=== PATIENT | female | born 1970 | race Caucasian/White ===

== ENCOUNTER → 2018-01-02 | Outpatient (CLI) | payer BC ==
--- NOTE | 2018-01-04 10:46 | MM ---
Reason for exam: screening (asymptomatic). Last mammogram was performed 2 years and 9 months ago. History: Family history of breast cancer in mother at age 48. Took hormonal contraceptives for 15 years. Physical Findings: A clinical breast exam by your physician is recommended on an annual basis and results should be correlated with mammographic findings. MG Screening Mammo w CAD Bilateral CC and MLO view(s) were taken. Prior study comparison: April 16, 2015, left breast MG work up mamm w CAD LT. April 14, 2015, bilateral MG screening mammo w CAD. The breast tissue is heterogeneously dense. This may lower the sensitivity of mammography. No suspicious abnormality in the left breast. There is an asymmetry in the outer right breast at middle posterior depth. ASSESSMENT: Incomplete: need additional imaging evaluation, BI-RAD 0 RECOMMENDATION: Special view mammogram of the right breast. If lesion persists on supplemental views, image directed ultrasound is recommended. [facility] will attempt to contact patient to return for supplemental views and ultrasound if indicated.
== END | disposition home or self-care (01) ==
LOC: RADMAMWWP 10:59
PROVIDERS: ATTEND Obstetrics & Gynecology
DX: Z12.31 Encounter for screening mammogram for malignant neoplasm of breast (principal); Z80.3 Family history of malignant neoplasm of breast
CPT/HCPCS: 77067

== ENCOUNTER → 2018-01-14 | Outpatient (CLI) | payer BC ==
--- NOTE | 2018-01-14 09:02 | MM ---
Reason for exam: additional evaluation requested from abnormal screening. Last mammogram was performed less than 1 month ago. History: Family history of breast cancer in mother at age 48. Took hormonal contraceptives for 15 years. Physical Findings: Nurse did not find any significant physical abnormalities on exam. MG 3D Work Up W/Cad RT CC and MLO view(s) were taken of the right breast. Prior study comparison: January 02, 2018, bilateral MG screening mammo w CAD. April 16, 2015, left breast MG work up mamm w CAD LT. The breast tissue is heterogeneously dense. This may lower the sensitivity of mammography. No persisting architectural distortion in the upper outer quadrant, but there may be underlying 5mm asymmetric density. These results were verbally communicated with the patient and result sheet given to the patient on 01/14/18. ASSESSMENT: Incomplete: need additional imaging evaluation, BI-RAD 0 RECOMMENDATION: Ultrasound of the right breast. (upper outer quadrant)
--- NOTE | 2018-01-14 09:07 | USB ---
Reason for exam: additional evaluation requested from abnormal screening. History: Family history of breast cancer in mother at age 48. Took hormonal contraceptives for 15 years. US Breast Workup Limited RT Right breast ultrasound demonstrates no cystic or solid lesion seen. Scanned 9-12 o'clock. 6 month follow up recommended. These results were verbally communicated with the patient and result sheet given to the patient on 01/14/18. ASSESSMENT: Probably benign, BI-RAD 3 RECOMMENDATION: Follow-up diagnostic mammogram of both breasts in 6 months.
== END ==
LOC: RADMAMWWP 07:40
PROVIDERS: ATTEND Obstetrics & Gynecology
DX: R92.8 Other abnormal and inconclusive findings on diagnostic imaging of breast (principal)
CPT/HCPCS: 77061; 77065

== ENCOUNTER 2020-04-07 13:07 | Emergency (ER) | payer BC ==
--- NOTE | 2020-04-07 14:53 | ED ---
Back Pain HPI - General Chief Complaint: Back Pain/Injury Stated Complaint: back pain Time Seen by Provider: 04/07/20 14:32 Source: patient Limitations: no limitations - History of Present Illness Initial Comments: Patient is a 50-year-old female with history of sciatica presenting to the emergency department with a chief complaint of back pain. Patient states about 2 days ago she bent over to scrap picker an object and felt a "pop". Patient reports localized pain in the lower back with some radiation to the left paraspinal region. No sciatica-type symptoms. Patient does report obstructive urinary symptoms like incomplete emptying but no signs of bowel incontinence. Patient states she is still able to control her urine. Patient reports she denies any saddle anesthesia or bowel incontinence. She reports the back pain is only alleviated in a sitting position but exacerbated with ambulation or when laying flat. Denies any abdominal pain nausea or vomiting. - Related Data Previous Rx's Medication Instructions Recorded Hydrocodone/Acetaminophen [[place] 1 each PO Q4HR PRN #20 tab 07/11/14 5-325] Ketorolac [Toradol] 10 mg PO Q6HR #15 tab 07/11/14 Cyclobenzaprine [Flexeril] 10 mg PO TID PRN #15 tab 04/07/20 Lidocaine 5% Patch [Lidoderm] 1 patch TOPICAL DAILY #6 patch 04/07/20 Allergies Allergy/AdvReac Type Severity Reaction Status Date / Time No Known Allergies Allergy Verified 04/07/20 13:56 Review of Systems ROS Statement: Those systems with pertinent positive or pertinent negative responses have been documented in the HPI. ROS Other: All systems not noted in ROS Statement are negative. Past Medical History Past Medical History: No Reported History History of Any Multi-Drug Resistant Organisms: None Reported Past Surgical History: No Surgical Hx Reported Past Psychological History: No Psychological Hx Reported Smoking Status: Current every day smoker Past Alcohol Use History: Rare Past Drug Use History: Marijuana General Exam Limitations: no limitations General appearance: alert, in no apparent distress Head exam: Present: atraumatic, normocephalic, normal inspection Eye exam: Present: normal appearance, PERRL, EOMI Pupils: Present: normal accommodation ENT exam: Present: normal exam, normal oropharynx, mucous membranes moist Neck exam: Present: normal inspection, full ROM Respiratory exam: Present: normal lung sounds bilaterally. Absent: respiratory distress, wheezes Cardiovascular Exam: Present: regular rate, normal rhythm, normal heart sounds GI/Abdominal exam: Present: soft. Absent: distended, tenderness, guarding Extremities exam: Present: normal inspection, full ROM, normal capillary refill Back exam: Present: normal inspection, full ROM, tenderness, paraspinal tenderness (Right paraspinal tenderness in the lumbosacral region.). Absent: vertebral tenderness Neurological exam: Present: alert, oriented X3 Psychiatric exam: Present: normal affect, normal mood Skin exam: Present: warm, dry, intact, normal color Course Vital Signs 04/07/20 04/07/20 13:53 16:35 Temperature 99.2 F 99.0 F Pulse Rate 98 68 Respiratory 16 20 Rate Blood Pressure 125/76 123/65 O2 Sat by Pulse 97 99 Oximetry Medical Decision Making - Medical Decision Making Patient is a 50-year-old female with history of sciatica presenting to the emergency department with a chief complaint of back pain. On exam patient has paraspinal tenderness is exacerbated. No saddle anesthesia. No bowel incontinence. Post void residual was less than 100 mL. No signs of urinary tract infection. Patient was given a Lidoderm patch, Toradol and Flexeril. On reevaluation patient reports improvement in symptoms. Patient will be discharged with Flexeril. Advised not to drive or operate heavy machinery when taking the medication. Advised to follow with primary care physical therapy. Return parameters were thoroughly discussed the patient was understanding and agreeable. Case discussed with physician. - Lab Data Lab Results 04/07/20 Range/Units 14:55 Urine Color Yellow Urine Appearance Cloudy H (Clear) Urine pH 6.0 (5.0-8.0) Ur Specific [place] 1.022 (1.001-1.035) Urine Protein Trace H (Negative) Urine Glucose (UA) Negative (Negative) Urine Ketones Negative (Negative) Urine Blood Negative (Negative) Urine Nitrite Negative (Negative) Urine Bilirubin Negative (Negative) Urine Urobilinogen <2.0 (<2.0) mg/dL Ur Leukocyte Esterase Trace H (Negative) Urine WBC 5 (0-5) /hpf Ur Squamous Epith Cells 7 H (0-4) /hpf Urine Bacteria Rare H (None) /hpf Urine Mucus Few H (None) /hpf Disposition Clinical Impression: Mechanical back pain, Strain of lumbar region Disposition: HOME SELF-CARE Condition: Stable Instructions (If sedation given, give patient instructions): Acute Low Back Pain (ED) Additional Instructions: Take prescribed medication as directed. Follow-up with an aircraft engine specialist. Return to emergency department if symptoms worsen. Prescriptions: Cyclobenzaprine [Flexeril] 10 mg PO TID PRN #15 tab PRN Reason: Muscle Spasm Lidocaine 5% Patch [Lidoderm] 1 patch TOPICAL DAILY #6 patch Is patient prescribed a controlled substance at d/c from ED?: No Referrals: Omar Keating DO [Primary Care Provider] - 1-2 days Samir Yañez MD [STAFF PHYSICIAN] - 1-2 days Time of Disposition: 16:37
[2020-04-07 15:52] LABS: Appearance,Urine Cloudy (Clear); Bacteria,Urine Rare /hpf; Bilirubin,Urine Negative (Negative); Blood,Urine Negative (Negative); Color,Urine Yellow; Glucose,Urine (UA) Negative (Negative); Ketones,Urine Negative (Negative); Leukocyte Esterase,Urine Trace (Negative); Mucus,Urine Few /hpf; Nitrite,Urine Negative (Negative); Protein,Urine Trace (Negative); Specific Gravity,Urine 1.022 (1.001-1.035); Squamous Epithelial Cell,Urine 7 /hpf (0-4); Urobilinogen,Urine <2.0 mg/dL (<2.0); WBC,Urine 5 /hpf (0-5)
[2020-04-09 09:29] VITALS: BP 123/65; PULSE 68; RESP 20; TEMP 99
== END 2020-04-07 16:47 | disposition home or self-care (01) ==
LOC: EC 13:07
DX: S39.012A Strain of muscle, fascia and tendon of lower back, initial encounter (principal); F17.200 Nicotine dependence, unspecified, uncomplicated; X58.XXXA Exposure to other specified factors, initial encounter
CPT/HCPCS: 81001; 99284

== ENCOUNTER 2020-05-14 17:02 | Emergency (ER) | payer BC | END 2020-05-14 17:14 | disposition left against medical advice (07) | LOC: EC 17:02 | DX: T63.461A Toxic effect of venom of wasps, accidental (unintentional), initial encounter (principal) | CPT/HCPCS: 99499 ==

== ENCOUNTER → 2020-07-20 | Outpatient (CLI) | payer BC ==
--- NOTE | 2020-07-20 15:02 | MM ---
Reason for exam: additional evaluation requested from prior study. Last mammogram was performed 2 years and 6 months ago. History: Family history of breast cancer in mother at age 48. Took hormonal contraceptives for 15 years. Physical Findings: Nurse did not find any significant physical abnormalities on exam. MG 3D Diag Mammo W/Cad MIO Bilateral CC and MLO view(s) were taken. Prior study comparison: January 14, 2018, right breast MG 3d work up w/cad RT. January 02, 2018, bilateral MG screening mammo w CAD. The breast tissue is heterogeneously dense. This may lower the sensitivity of mammography. Underlying low density circumscribed nodularity measuring up to 6mm. The previous asymmetric densities from 2018 are unchanged. These results were verbally communicated with the patient and result sheet given to the patient on 07/20/20. ASSESSMENT: Incomplete: need additional imaging evaluation, BI-RAD 0 RECOMMENDATION: Ultrasound of the right breast. (lateral half)
--- NOTE | 2020-07-20 15:05 | USB ---
Reason for exam: additional evaluation requested from abnormal screening. History: Family history of breast cancer in mother at age 48. Took hormonal contraceptives for 15 years. US Breast Limited RT Right limited breast ultrasound including focal area of concern, retroareolar and axilla demonstrates a 0.3 x 0.2 x 0.2cm mixed, benign lesion at 7 o'clock, a 0.6 x 0.6 x 0.4cm cystic, benign lesion at 8 o'clock and a 0.5 x 0.3 x 0.4cm cystic, benign lesion at 10 o'clock. Scanned 6-12 o'clock. These results were verbally communicated with the patient and result sheet given to the patient on 07/20/20. ASSESSMENT: Benign, BI-RAD 2 RECOMMENDATION: Routine screening mammogram of both breasts in 1 year.
== END | disposition home or self-care (01) ==
LOC: RADMAMWWP 12:46
PROVIDERS: ATTEND Obstetrics & Gynecology
DX: R92.8 Other abnormal and inconclusive findings on diagnostic imaging of breast (principal)
CPT/HCPCS: 77062; 77066

== ENCOUNTER → 2022-04-14 | Outpatient (CLI) | payer BC ==
--- NOTE | 2022-04-14 08:45 | MM ---
Reason for Exam: Screening (asymptomatic). Last mammogram was performed 1 year(s) and 9 month(s) ago. Patient History: Menarche at age 13. First Full-Term at age 29. Postmenopausal. Patient has history of breast feeding. Patient used Hormonal Contraceptives for 15 years. Mother had breast cancer, age 48. Risk Values: Alexus 5 year model risk: 2.1%. NCI Lifetime model risk: 18.3%. Prior Study Comparison: 01/02/2018 Bilateral Screening Mammogram, [facility]. 01/14/2018 Right Diagnostic Mammogram, [facility]. 07/20/2020 Bilateral Diagnostic Mammogram, [facility]. Tissue Density: The breast tissue is heterogeneously dense. This may lower the sensitivity of mammography. Findings: Analyzed By CAD. New indeterminate calcifications in the middle depth upper outer aspect right breast. It is small well circumscribed masses bilaterally are redemonstrated. There is a 11 mm oval obscured density in the middle depth right breast CC slice 35 not clearly seen on MLO tomogram images. Overall Assessment: Incomplete: need additional imaging evaluation, BI-RAD 0 Management: Special View Mammogram of the right breast. Return for additional views including spot magnification views right breast calcifications and true lateral tomogram view right breast. Electronically signed and approved by: Saturnino Reza M.D.
--- NOTE | 2022-04-14 09:13 | MM ---
Reason for Exam: Additional evaluation requested from abnormal screening. Last mammogram was performed 1 year(s) and 9 month(s) ago. Patient History: Menarche at age 13. First Full-Term at age 29. Postmenopausal. Patient has history of breast feeding. Patient used Hormonal Contraceptives for 15 years. Mother had breast cancer, age 48. Risk Values: Alexus 5 year model risk: 2.1%. NCI Lifetime model risk: 18.3%. Prior Study Comparison: 01/02/2018 Bilateral Screening Mammogram, [facility]. 01/14/2018 Right Diagnostic Mammogram, [facility]. 07/20/2020 Bilateral Diagnostic Mammogram, [facility]. Tissue Density: Right: The breast tissue is heterogeneously dense. This may lower the sensitivity of mammography. Findings: Analyzed By CAD. Confirmation of suspicious heterogeneous group of new calcifications in the middle depth marked outer upper aspect over roughly 9 mm length just posterior to well-defined round lesion probable cyst. Some suspicious distortion in the inferior right breast not clearly identified on the CC view. This persists on RMLIMF view anteriorly and inferiorly. The 11 mm obscured density cc slice 35 is not clearly seen on tomogram MLO or true lateral views. Overall Assessment: Incomplete: need additional imaging evaluation, BI-RAD 0 Management: Diagnostic Breast Ultrasound of the right breast. Right breast ultrasound for several abnormalities. Results were given to the patient verbally at the time of exam. Electronically signed and approved by: Saturnino Reza M.D.
--- NOTE | 2022-04-14 12:46 | USB ---
Reason for Exam: Additional evaluation requested from abnormal screening. Patient History: Menarche at age 13. First Full-Term at age 29. Postmenopausal. Patient has history of breast feeding. Patient used Hormonal Contraceptives for 15 years. Mother had breast cancer, age 48. Risk Values: Alexus 5 year model risk: 2.1%. NCI Lifetime model risk: 18.3%. Technique: Method: Targeted. Patient Position: Supine. Prior Study Comparison: 01/02/2018 Bilateral Screening Mammogram, [facility]. 01/14/2018 Right Diagnostic Mammogram, [facility]. 07/20/2020 Bilateral Diagnostic Mammogram, [facility]. Findings: The upper outer quadrant of the right breast and the lower inner quadrant of the left breast were scanned. Right 1000 6CFN there is a 6 x 6 x 4mm oval cyst.No suspicious follow cystic mass 4 to 6:00 position right breast. At 10 to 12:00 position there is a 6 x 4 x 6 mm simple appearing thin-walled cyst identified without additional suspicious abnormality. Overall Assessment: Suspicious, BI-RAD 4 Management: Stereotactic Core Biopsy of the right breast. New suspicious heterogeneous group of microcalcifications right breast. Electronically signed and approved by: Saturnino Reza M.D.
== END | disposition home or self-care (01) ==
LOC: RADMAMWWP 08:07
PROVIDERS: ATTEND Family Medicine
DX: Z12.31 Encounter for screening mammogram for malignant neoplasm of breast (principal)
CPT/HCPCS: 77063; 77065; 77067

== ENCOUNTER → 2022-05-05 | Day surgery (SDC) | payer BC ==
[2022-05-05 10:14] VITALS: RESP 16; TEMP 98.1
[2022-05-05 11:07] VITALS: BP 103/70; PULSE 87
--- NOTE | 2022-05-10 10:48 | MM ---
Risk Values: Alexus 5 year model risk: 2.1%. NCI Lifetime model risk: 18.3%. Prior Study Comparison: 07/20/2020 Bilateral Diagnostic Mammogram, [facility]. 04/14/2022 Right MG work up mamm w CAD RT, [facility]. 04/14/2022 Bilateral MG 3D screening mammo w/cad, [facility]. Pathology Description: Marker Left Behind. Specimen Radiograph. Approach: Lateral to Medial Needle Type: Eviva Cores: 7 Skin Nicks: 1 Gauge: 9 The procedure of stereotactic guided core biopsy was explained to the patient. Benefits, alternatives, and risks were discussed. An informed consent was then obtained. The shortness pathway for biopsy was chosen. Shortness pathway was lateral to medial approach. I performed the localization, then performed the remainder of the procedure. Lidocaine was used as anesthetic into the skin and subcutaneous tissue. Lidocaine with epinephrine is used as anesthetic into the deeper tissues during sampling. A vacuum assisted biopsy gun was used to obtain multiple core samples. The patient tolerated the procedure well without any immediate complication. The patient was kept in the radiology department for short stay after the procedure and then discharged home in stable condition. Targeted calcifications are identified in specimen mammogram. Post biopsy mammogram shows the clip to appear in satisfactory position relative to the targeted area of concern on the preprocedure images. No significant residual calcifications identified. Small hematoma at biopsy site noted. Intermediate index of suspicion noted at time of procedure. Impression: SUCCESSFUL, UNCOMPLICATED STEREOTACTIC GUIDED CORE BIOPSY OF AREA OF CONCERN IN THE RIGHT BREAST. Pathology Results: Result: Benign, Fibrocystic change. RIGHT BREAST, STEREOTACTIC NEEDLE CORE BIOPSY: Fibrocystic changes including columnar cell change/columnar cell hyperplasia with calcifications. Overall Assessment: Benign Management: Diagnostic Mammogram of the right breast in 6 months. Electronically signed and approved by: Saturnino Reza M.D.
== END ==
LOC: RADMAMWWP 09:53
PROVIDERS: ATTEND Surgery
DX: N62 Hypertrophy of breast (principal); R92.1 Mammographic calcification found on diagnostic imaging of breast; R92.8 Other abnormal and inconclusive findings on diagnostic imaging of breast; Z91.09 Other allergy status, other than to drugs and biological substances
CPT/HCPCS: 88305; 19081; A4648; J2001

== ENCOUNTER → 2024-07-28 | Outpatient (CLI) | payer OTHER ==
--- NOTE | 2024-07-29 10:09 | MM ---
Reason for Exam: Screening (asymptomatic). Last mammogram was performed 2 year(s) and 3 month(s) ago. Patient History: Menarche at age 13. First Full-Term at age 29. Postmenopausal. Patient has history of breast feeding. Patient used Hormonal Contraceptives for 15 years. 05/05/2022, Benign MG stereo VAD BX RT on the right side. Mother had breast cancer, age 48. Risk Values: Alexus 5 year model risk: 2.7%. NCI Lifetime model risk: 20.6%. Prior Study Comparison: 07/20/2020 Bilateral Diagnostic Mammogram, [facility]. 04/14/2022 Right MG work up mamm w CAD RT, [facility]. 04/14/2022 Bilateral MG 3D screening mammo w/cad, [facility]. Tissue Density: The breasts are heterogeneously dense, which may obscure small masses. Findings: Analyzed By CAD. Unchanged bilateral areas of asymmetric density. Microclip lateral right breast from prior biopsy. There is no suspicious group of microcalcifications or new suspicious mass in either breast. Overall Assessment: Benign, BI-RAD 2 Management: Screening Mammogram of both breasts in 1 year. SEE NOTE BELOW IN REGARDS TO PATIENT'S INCREASED LIFETIME RISK SCORE. Patient should continue monthly self-breast exams. A clinical breast exam by your physician is recommended on an annual basis. This exam should not preclude additional follow-up of suspicious palpable abnormalities. Note on Alexus scores and lifetime risk: 1. A Alexus score greater than 3% is considered moderate risk. If this is the case, consider specialist referral to assess eligibility for a risk reducing agent. 2. If overall lifetime risk for the development of breast cancer is 20% or higher, the patient may qualify for future screening with alternating mammogram and breast MRI. [facility], , 07/29/2024 10:06 AM. Electronically signed and approved by: Loreto Rivas M.D. Radiologist
== END | disposition home or self-care (01) ==
LOC: RADMAMWWP 07:34
PROVIDERS: ATTEND Family Medicine
CPT/HCPCS: 77063; 77067

== ENCOUNTER 2024-09-13 11:18 | Emergency (ER) | payer OTHER ==
--- NOTE | 2024-09-13 11:38 | ED ---
GI Bleed HPI - General Chief complaint: GI Bleed Stated complaint: Abdominal Pain Time Seen by Provider: 09/13/24 11:29 Source: patient, RN notes reviewed Mode of arrival: ambulatory Limitations: no limitations - History of Present Illness Initial comments: This is a 54-year-old female presenting with abdominal pain (6/10) x 2 days and black stool today. Patient describes constant pain as "burning" localized around umbilicus and epigastric region. Patient denies history of GERD. Endorses use of Pepcid and Tums with no relief. Patient states she went to an urgent care with right lower quadrant tenderness with provider and recommending further evaluation in ER. Patient denies fever, chills, chest pain, dyspnea, N/V, dizziness MD complaint: melena Onset/Timin -: days(s) Radiation: none Severity scale (1-10): 6 Quality: burning Consistency: constant Improves with: none Worsens with: none Associated Symptoms: abdominal pain Treatments Prior to Arrival: OTC meds (Pepcid, Tums) - Related Data Home Medications Medication Instructions Recorded Confirmed buPROPion SR [Wellbutrin SR] 150 mg PO DAILY 04/17/22 05/05/22 Allergies Allergy/AdvReac Type Severity Reaction Status Date / Time nickel Allergy Rash/Hives Verified 09/13/24 11:28 Review of Systems ROS Statement: Those systems with pertinent positive or pertinent negative responses have been documented in the HPI. ROS Other: All systems not noted in ROS Statement are negative. Past Medical History Past Medical History: No Reported History History of Any Multi-Drug Resistant Organisms: None Reported Past Surgical History: No Surgical Hx Reported Additional Past Surgical History / Comment(s): ABLASION, 2 VAGINAL DELIVERIES Past Anesthesia/Blood Transfusion Reactions: No Reported Reaction Past Psychological History: Depression Smoking Status: Current every day smoker Past Alcohol Use History: None Reported, Rare Past Drug Use History: Marijuana General Exam Limitations: no limitations General appearance: alert, in no apparent distress Head exam: Present: atraumatic, normocephalic, normal inspection Eye exam: Present: normal appearance, PERRL, EOMI. Absent: scleral icterus, conjunctival injection, periorbital swelling ENT exam: Present: normal exam, mucous membranes moist Neck exam: Present: normal inspection. Absent: tenderness, meningismus, ly mphadenopathy Respiratory exam: Present: normal lung sounds bilaterally. Absent: respiratory distress, wheezes, rales, rhonchi, stridor Cardiovascular Exam: Present: regular rate, normal rhythm, normal heart sounds. Absent: systolic murmur, diastolic murmur, rubs, gallop, clicks GI/Abdominal exam: Present: soft, tenderness (RLQ, umbilical and epigastric TTP. \\), guarding (RLQ tympanic tenderness with involuntary guarding.), hyperactive bowel sounds. Absent: distended, rebound, rigid Extremities exam: Present: normal inspection, full ROM, normal capillary refill. Absent: tenderness, pedal edema, joint swelling, calf tenderness Back exam: Present: normal inspection Neurological exam: Present: alert, oriented X3, CN II-XII intact Psychiatric exam: Present: normal affect, normal mood Skin exam: Present: warm, dry, intact, normal color. Absent: rash Course Vital Signs 09/13/24 09/13/24 09/13/24 11:28 12:51 13:34 Temperature 97.5 F L 98.5 F Pulse Rate 87 71 70 Respiratory 18 17 18 Rate Blood Pressure 129/85 114/96 130/70 O2 Sat by Pulse 98 96 98 Oximetry 09/13/24 14:17 Temperature Pulse Rate 70 Respiratory 17 Rate Blood Pressure 131/82 O2 Sat by Pulse 98 Oximetry Medical Decision Making - Medical Decision Making Was pt. sent in by a medical professional or institution ([facility], [facility], urgent care, hospital, or [facility]...) When possible be specific @ -[No] Did you speak to anyone other than the patient for history (EMS, parent, family, police, friend...)? What history was obtained from this source @ -[No] Did you review nursing and triage notes (agree or disagree)? Why? @ -[I reviewed and agree with nursing and triage notes] Were old charts reviewed (outside hosp., previous admission, EMS record, old EKG, old radiological studies, urgent care reports/EKG's, [facility] records)? Report findings @ -[No old charts were reviewed] Differential Diagnosis (chest pain, altered mental status, abdominal pain women, abdominal pain men, vaginal bleeding, weakness, fever, dyspnea, syncope, headache, dizziness, GI bleed, back pain, seizure, CVA, palpatations, mental health, musculoskeletal)? @ -Differential Abdominal Pain Women: Appendicitis, Cholecystitis, diverticulosis, ischemic bowel, pancreatitis, hepatitis, UTI, gastroenteritis, AAA, incarcerated hernia, bowel obstruction, constipation, inflammatory bowel, hepatitis, peptic ulcer disease, splenic infarction, perforated viscus, vulvitis, ovarian torsion, PID, kidney stone, placenta abruption, this is not meant to be an all-inclusive list EKG interpreted by me (3pts min.). @ -Not done X-rays interpreted by me (1pt min.). @ -[None done] CT interpreted by me (1pt min.). @ -Abdomen/pelvic CT shows focal nondistention of ascending colon or cecum. U/S interpreted by me (1pt. min.). @ -[None done] What testing was considered but not performed or refused? (CT, X-rays, U/S, labs)? Why? @ -[None] What meds were considered but not given or refused? Why? @ -[None] Did you discuss the management of the patient with other professionals (pro fessionals i.e. , PA, [employer], lab, RT, psych nurse, hospital social worker, appliance service technician, teacher, fire control officer, renal case manager)? Give summary @ -[No] Was smoking cessation discussed for >3mins.? @ -[No] Was critical care preformed (if so, how long)? @ -[No] Were there social determinants of health that impacted care today? How? (Homelessness, low income, unemployed, alcoholism, drug addiction, transportation, low edu. Level, literacy, decrease access to med. care, [facility], rehab)? @ -[No] Was there de-escalation of care discussed even if they declined (Discuss DNR or withdrawal of care, Hospice)? DNR status @ -[No] What co-morbidities impacted this encounter? (DM, HTN, Smoking, COPD, CAD, Cancer, CVA, ARF, Chemo, Hep., AIDS, mental health diagnosis, sleep apnea, morbid obesity)? @ -[None] Was patient admitted / discharged? Hospital course, mention meds given and route, prescriptions, significant lab abnormalities, going to OR and other pertinent info. @ -Lab work is unremarkable including negative lactic acid. Abdomen/pelvic CT shows focal nondistention of ascending colon or cecum. Radiologist recommends colonoscopy to rule out malignancy. Attempted Magic mouthwash, IV Pepcid and Protonix with no relief of burning sensation. Patient has colonoscopy, positive Cologuard on 10/22/2024. Advised to contact GI on Sunday to move up appointment if possible. Return to ER if melena/bleeding, abdominal pain and/or dizziness/lightheadedness worsens. Undiagnosed new problem with uncertain prognosis? @ -Colonic neoplasm Drug Therapy requiring intensive monitoring for toxicity (Heparin, Nitro, Insulin, Cardizem)? @ -[No] Were any procedures done? @ -[No] Diagnosis/symptom? @ -Ascending colon neoplasm Acute, or Chronic, or Acute on Chronic? @ -Acute Uncomplicated (without systemic symptoms) or Complicated (systemic symptoms)? @ -Complicated Side effects of treatment? @ -[No] Exacerbation, Progression, or Severe Exacerbation? @ -[No] Poses a threat to life or bodily function? How? (Chest pain, USA, [place], pneumonia, PE, COPD, DKA, ARF, appy, cholecystitis, CVA, Diverticulitis, Homicidal, Suicidal, threat to staff... and all critical care pts) @ -Possible malignant neoplasm - Lab Data Result diagrams: 09/13/24 12:30 09/13/24 12:30 Lab Results 09/13/24 09/13/24 09/13/24 Range/Units 12:30 12:30 12:30 WBC 8.8 (3.8-10.6) k/uL RBC 4.48 (3.80-5.40) m/uL Hgb 13.8 (11.4-16.0) gm/dL Hct 42.2 (34.0-46.0) % MCV 94.1 (80.0-100.0) fL MCH 30.9 (25.0-35.0) pg MCHC 32.8 (31.0-37.0) g/dL RDW 12.5 (11.5-15.5) % Plt Count 252 (150-450) k/uL MPV 7.8 Neutrophils % 61 % Lymphocytes % 30 % Monocytes % 5 % Eosinophils % 2 % Basophils % 1 % Neutrophils # 5.4 (1.3-7.7) k/uL Lymphocytes # 2.6 (1.0-4.8) k/uL Monocytes # 0.4 (0-1.0) k/uL Eosinophils # 0.2 (0-0.7) k/uL Basophils # 0.1 (0-0.2) k/uL PT 10.2 (10.0-12.5) sec INR 0.9 (<1.2) APTT 25.4 (22.0-30.0) sec Sodium 137 (137-145) mmol/L Potassium 4.0 (3.5-5.1) mmol/L Chloride 108 H (98-107) mmol/L Carbon Dioxide 26 (22-30) mmol/L Anion Gap 3 mmol/L BUN 16 (7-17) mg/dL Creatinine 0.70 (0.52-1.04) mg/dL Est GFR (CKD-EPI)AfAm >90 (>60 ml/min/1.73 sqM) Est GFR (CKD-EPI)NonAf >90 (>60 ml/min/1.73 sqM) Glucose 93 (74-99) mg/dL Plasma Lactic Acid Rolando (0.7-2.0) mmol/L Calcium 10.4 H (8.4-10.2) mg/dL Total Bilirubin 0.3 (0.2-1.3) mg/dL AST 21 (14-36) U/L ALT 23 (4-34) U/L Alkaline Phosphatase 67 (38-126) U/L Total Protein 6.7 (6.3-8.2) g/dL Albumin 4.3 (3.5-5.0) g/dL Lipase 171 (23-300) U/L //24 Range/Units 12:30 WBC (3.8-10.6) k/uL RBC (3.80-5.40) m/uL Hgb (11.4-16.0) gm/dL Hct (34.0-46.0) % MCV (80.0-100.0) fL MCH (25.0-35.0) pg MCHC (31.0-37.0) g/dL RDW (11.5-15.5) % Plt Count (150-450) k/uL MPV Neutrophils % % Lymphocytes % % Monocytes % % Eosinophils % % Basophils % % Neutrophils # (1.3-7.7) k/uL Lymphocytes # (1.0-4.8) k/uL Monocytes # (0-1.0) k/uL Eosinophils # (0-0.7) k/uL Basophils # (0-0.2) k/uL PT (10.0-12.5) sec INR (<1.2) APTT (22.0-30.0) sec Sodium (137-145) mmol/L Potassium (3.5-5.1) mmol/L Chloride (98-107) mmol/L Carbon Dioxide (22-30) mmol/L Anion Gap mmol/L BUN (7-17) mg/dL Creatinine (0.52-1.04) mg/dL Est GFR (CKD-EPI)AfAm (>60 ml/min/1.73 sqM) Est GFR (CKD-EPI)NonAf (>60 ml/min/1.73 sqM) Glucose (74-99) mg/dL Plasma Lactic Acid Rolando 1.3 (0.7-2.0) mmol/L Calcium (8.4-10.2) mg/dL Total Bilirubin (0.2-1.3) mg/dL AST (14-36) U/L ALT (4-34) U/L Alkaline Phosphatase (38-126) U/L Total Protein (6.3-8.2) g/dL Albumin (3.5-5.0) g/dL Lipase (23-300) U/L Disposition Clinical Impression: Colon neoplasm Disposition: HOME SELF-CARE Condition: Good Instructions (If sedation given, give patient instructions): Gastrointestinal Bleeding (ED) Is patient prescribed a controlled substance at d/c from ED?: No Referrals: Omar Keating DO [Primary Care Provider] - 1-2 days Nikky Muir MD [STAFF PHYSICIAN] - 1-2 days Time of Disposition: 14:10
[2024-09-13 12:42] LABS: Basophils # (A) 0.1 k/uL (0-0.2); Basophils % (A) 1 %; Eosinophils # (A) 0.2 k/uL (0-0.7); Eosinophils % (A) 2 %; HCT 42.2 % (34.0-46.0); HGB 13.8 gm/dL (11.4-16.0); Lymphocytes # (A) 2.6 k/uL (1.0-4.8); Lymphocytes % (A) 30 %; MCH 30.9 pg (25.0-35.0); MCHC 32.8 g/dL (31.0-37.0); MCV 94.1 fL (80.0-100.0); Mean Platelet Volume 7.8; Monocytes # (A) 0.4 k/uL (0-1.0); Monocytes % (A) 5 %; Neutrophils # (A) 5.4 k/uL (1.3-7.7); Neutrophils % (A) 61 %; Platelet Count 252 k/uL (150-450); RBC 4.48 m/uL (3.80-5.40); RDW 12.5 % (11.5-15.5); WBC 8.8 k/uL (3.8-10.6)
[2024-09-13] MEDS: PANTOPRAZOLE 40 MG/10 ML VIAL IVP STA (12:44)
[2024-09-13] MEDS: FAMOTIDINE 20 MG/2 ML VIAL IV STA (12:49)
[2024-09-13 13:00] LABS: ALT 23 U/L (4-34); AST 21 U/L (14-36); African American GFR (CKD) >90 (>60 ml/min/1.73 sqM); Albumin 4.3 g/dL (3.5-5.0); Alkaline Phosphatase 67 U/L (38-126); Anion Gap 3 mmol/L; Blood Urea Nitrogen 16 mg/dL (7-17); Calcium 10.4 mg/dL (8.4-10.2); Carbon Dioxide 26 mmol/L (22-30); Chloride 108 mmol/L (98-107); Glucose 93 mg/dL (74-99); Lipase 171 U/L (23-300); Non-African American GFR(CKD) >90 (>60 ml/min/1.73 sqM); Sodium 137 mmol/L (137-145); Total Bilirubin 0.3 mg/dL (0.2-1.3); Total Protein 6.7 g/dL (6.3-8.2)
[2024-09-13 13:01] LABS: INR 0.9 (<1.2); Partial Thromboplastin Time 25.4 sec (22.0-30.0); Prothrombin Time 10.2 sec (10.0-12.5)
[2024-09-13] MEDS: MAG HYDROX/AL HYDROX/SIMETH 30 ML, diphenhydrAMINE ELIXIR 75 MG, LIDOCAINE VISCOUS 2% 3... PO STA (13:28)
--- NOTE | 2024-09-13 13:52 | CT ---
EXAMINATION TYPE: CT abdomen pelvis w con DATE OF EXAM: 09/13/2024 1:34 PM COMPARISON: 07/11/2014. CLINICAL INDICATION: Female, 54 years old with history of Melena, RLQ and epigastric TTP; ABD PAIN/ D ARK TARRY STOOL TECHNIQUE: Axial CT abdomen pelvis w con;Sagittal and coronal reformats were created on a separate w orkstation. Contrast used:100ML mL of Isovue 300 with IV Contrast, (none if empty) Oral contrast used: without Oral Contrast (none if empty) CT DLP: 1088 mGycm, Automated exposure control for dose reduction was used. FINDINGS: LOWER CHEST: Unremarkable ABDOMEN LIVER: Unremarkable GALLBLADDER AND BILE DUCTS: Noncalcified gallstones in the gallbladder lumen. PANCREAS: Unremarkable. SPLEEN: Unremarkable. ADRENAL GLANDS: Unremarkable. KIDNEYS AND URETERS: No evidence of hydronephrosis or renal calculus. The ureters are unremarkable. Nonobstructing calculi on the right measuring up to 3 mm. Left renal cyst. PELVIS BLADDER: No evidence for wall thickening or mass given limitations of exam. REPRODUCTIVE: Unremarkable. ABDOMEN & PELVIS STOMACH AND BOWEL: Stomach and duodenum are unremarkable. Focal nondistention of the colon near thee cecum series 301 image 49 and series 202 image 37. No evidence of bowel obstruction. Appendix is norm al. Few scattered colonic diverticula. PERITONEUM/RETROPERITONEUM: No evidence of pneumoperitoneum or free fluid. VASCULATURE: No evidence of aortic aneurysm. MUSCULOSKELETAL: No acute osseous abnormalities LYMPH NODES: No gross evidence for lymphadenopathy. SOFT TISSUE/ABDOMINAL WALL: Fat-containing umbilical hernia. IMPRESSION: 1. Focal nondistention of the ascending colon near the cecum possibly due to peristalsis. Further ev aluation recommended to rule out malignancy consider colonoscopy. No further evaluation with evidence for acute gastric intestinal process to explain the patient's stools. 2. Cholelithiasis. 3. Nonobstructing right renal calculi. [facility], , 09/13/2024 1:50 PM
[2024-09-13 14:21] VITALS: RESP 17
[2024-09-13 15:13] VITALS: BP 121/85; PULSE 68; TEMP 98.9
== END 2024-09-13 15:13 | disposition home or self-care (01) ==
LOC: EC 11:18
DX: C18.2 Malignant neoplasm of ascending colon (principal); K80.20 Calculus of gallbladder without cholecystitis without obstruction; N20.0 Calculus of kidney; F17.200 Nicotine dependence, unspecified, uncomplicated; Z88.8 Allergy status to other drugs, medicaments and biological substances
CPT/HCPCS: 36415; 80053; 83605; 83690; 85025; 85610; 85730; 74177; 99285; 96374; 96375; J3490; Q9967; J2470

== ENCOUNTER 2024-09-30 11:45 | Day surgery (SDC) | payer OTHER ==
[~2024-09-30 11:45] MED LIST: LACTATED RINGERS 1,000 ML IV SCH; LIDOCAINE 1% (10MG/ML) FOR IV START INTRADERMA PRN
[2024-09-30 12:58] VITALS: RESP 16; TEMP 99.1
[2024-09-30] MEDS: IV FLUID CONTINUATION 1,000 ML IV ONE (13:10)
[2024-09-30] MEDS ORDERED: LIDOCAINE 1% INJ 10MG/ML (20 ML MDV) ONE (13:50)
[2024-09-30] MEDS ORDERED: PROPOFOL 10 MG/ML 20 ML VIAL IV ONE (13:50)
--- NOTE | 2024-09-30 14:16 | P.PCN ---
Date of Procedure: 09/30/24 Procedure(s) Performed: BRIEF HISTORY: Patient is a 54-year-old pleasant white female scheduled for an elective colonoscopy as a part of evaluation of positive Cologuard/screening for colon cancer. PROCEDURE PERFORMED: Colonoscopy with polypectomy. PREOPERATIVE DIAGNOSIS: Screening for colon cancer/positive Cologuard. IV sedation per Anesthesia. PROCEDURE: After informed consent was obtained, the patient, was brought into the endoscopy unit. IV sedation was administered by Anesthesia under continuous monitoring. Digital rectal examination was normal. Initially the Olympus CF-160 flexible video colonoscope was then inserted in the rectum, gradually advanced into the cecum without any difficulty. Careful examination was performed as the scope was gradually being withdrawn. Ileocecal valve and the appendiceal orifice were visualized and appeared normal. Prep was excellent. Mucosa of the cecum, ascending colon, transverse colon, descending colon normal. In the proximal sigmoid colon at 40 cm from anal verge there was a 5 mm and 1 cm polyp removed by snare polypectomy. In the rectosigmoid colon there were 4 polyps measuring between 5 mm to 1 cm in size all of which were removed by snare polypectomy. In the rectum there is a 4 mm and 5 mm polyp that was removed by snare polypectomy. Rest of the, sigmoid colon, and rectum appeared normal. Retroflexion was performed in the rectum and no lesions were seen. The patient tolerated the procedure well. IMPRESSION: 5 mm and 1 cm sigmoid colon polyp status post snare polypectomy 4 polyps in the rectosigmoid colon measuring between 5 mm to 1 cm in size status post polypectomy Dimension 4 mm rectal polyp status post. RECOMMENDATIONS: Findings of this examination were discussed with the patient as well as her family. She was advised to follow-up with the biopsy results. If the biopsy reveals adenoma she can have repeat colonoscopy in 3 years..
[2024-09-30 14:33] VITALS: BP 127/89; PULSE 73
== END 2024-09-30 14:53 | disposition home or self-care (01) ==
LOC: ORWHC2ENDO 11:45
PROVIDERS: ATTEND Internal Medicine Gastroenterology
DX: Z12.11 Encounter for screening for malignant neoplasm of colon (principal); K63.5 Polyp of colon; K62.1 Rectal polyp; F32.A Depression, unspecified; F17.200 Nicotine dependence, unspecified, uncomplicated; Z79.899 Other long term (current) drug therapy; Z91.048 Other nonmedicinal substance allergy status
CPT/HCPCS: 81025; 88305; 45385; J2003; J2704